=== PATIENT | female | born 1950 ===

== ENCOUNTER 2025-08-07 06:00 | Day surgery (SDC) | payer OTHER ==
[~2025-08-07 06:00] MED LIST: ATORVASTATIN CA40 MG; LEVO-T75 MCG; NEURONTIN800 MG
[2025-08-07] MEDS ORDERED: CEFAZOLIN SODIUM 1,000 MG VIAL ONE ×2 (07:30→07:36)
[2025-08-07] MEDS ORDERED: GENTAMICIN SULFATE 40 MG/ML VIAL ONE (07:35)
[2025-08-07] MEDS ORDERED: LIDOCAINE HCL 1%/EPINEPHRINE 20ML VIAL IJ ONE (07:35)
[2025-08-07] MEDS ORDERED: CHLORHEXIDINE GLUCONATE 120 ML BOTTLE TOP ONE ×2 (07:35)
[2025-08-07] MEDS ORDERED: LIDOCAINE HCL 1%/EPINEPHRINE 10 ML VIAL IJ ONE (07:36)
[2025-08-07] MEDS ORDERED: MACROBID 100 M100 MG PO (10:56)
[2025-08-07] MEDS ORDERED: TRAM1TAB98 PO (10:56)
== END 2025-08-07 13:00 | disposition home or self-care (01) ==
LOC: CIR.AMB 06:00
PROVIDERS: ATTEND Obstetrics & Gynecology Gynecology
DX: N81.11 Cystocele, midline (principal); Z88.6 Allergy status to analgesic agent